=== PATIENT | male | born 1980 | race Hispanic/Latino ===

== ENCOUNTER 2017-09-23 23:46 | Inpatient (IN) | payer OTHER ==
[2017-09-23] MEDS ORDERED: Propofol 1,000 MG/100 ML VIAL IV ONE (23:52)
[2017-09-24] MEDS ORDERED: Fentanyl 100 MCG/2 ML VIAL ONE ×3 (00:05→02:57)
[2017-09-24] MEDS ORDERED: Vecuronium 10 MG VIAL ONE (00:07)
[2017-09-24] MEDS ORDERED: Water For Inject, Bacteriostat 30 ML ONE (00:08)
[2017-09-24 00:39] LABS: #Basophils 0.1 thou/uL (0.0-0.2); #Eosinphils 0.1 thou/uL (0.0-0.7); #Lymphocytes 1.7 thou/uL (1.20-3.40); #Monocytes 1.2 thou/uL (0.11-0.59); #Neutrophils 13.4 thou/uL (1.40-6.50); %Basophils 0.3 % (0.0-1.0); %Eosinophils 0.6 % (0.0-10.0); %Lymphocytes 10.2 % (21.0-51.0); %Monocytes 7.2 % (0.0-10.0); %Neutrophils 81.6 % (42.0-75.0); Hemoglobin 12.4 g/dL (14.0-18.0); Mean Corpuscular HGB CONC 33.6 g/dL (32.0-36.0); Mean Corpuscular Hemoglobin 31.5 pg (27.0-31.0); Mean Corpuscular Volume 93.8 fL (78.0-98.0); Mean Platelet Volume 7.2 fL (7.4-10.4); Platelet Count 200 thou/uL (130-400); RBC Distribution Width 11.3 % (11.5-14.5); Red Blood Cell (RBC) Count 3.93 mill/uL (4.70-6.10); White Blood Cell (WBC) Count 16.4 thou/uL (4.8-10.8)
[2017-09-24 00:46] LABS: ALT (SGPT) 9 U/L (8-55); AST (SGOT) 10 U/L (5-34); Alcohol Less than 10 mg/dL (Less than 10); Alkaline Phosphatase 85 U/L (40-150); Anion Gap 16 mmol/L (10-20); BUN (Urea Nitrogen) 12 mg/dL (8.9-20.6); Bilirubin, Total 1.2 mg/dL (0.2-1.2); Calc. Creatinine Clearance 0 mL/min (70-130); Calcium 7.3 mg/dL (7.8-10.44); Carbon Dioxide 15 mmol/L (22-29); Chloride 107 mmol/L (98-107); Estimated GFR-MDRD Greater than 90; Globulin 1.9 g/dL (2.4-3.5); Glucose 133 mg/dL (70-105); Lipase 19 U/L (8-78); Potassium 4.4 mmol/L (3.5-5.1); Protein, Total 4.9 g/dL (6.0-8.3); Sodium 134 mmol/L (136-145)
[2017-09-24 00:57] LABS: Actual Bicarbonate (HCO3a) 17.3 mEq/L (22-28); Base Excess (BEa) -6.4 mEq/L (-2.0 to +3.0); CO2 Tension 29.2 mmHg (35.0-45.0); Hematocrit-ABG 34.2 % (42.0-52.0); Hemoglobin (Hb) 11.8 g/dL (14.0-18.0); O2 Tension (PaO2) 565.9 mmHg (80.0-100.0); pH, Arterial 7.39 (7.35-7.45)
[2017-09-24 00:58] LABS: Analyzer IN Cardio ER; Calcium, Ionized 1.1 mmol/L (1.12-1.30); Puncture Site R FEMORAL
[2017-09-24 01:19] LABS: PTT 22.9 SEC (22.9-36.1)
[2017-09-24 01:20] LABS: INR-International Normal Ratio 1.3; Prothrombin Time 16.3 SEC (12.0-14.7)
[2017-09-24] MEDS ORDERED: CEFAZOLIN 1 GM VIAL ONE (01:25)
[2017-09-24] MEDS ORDERED: Adacel (T-DAP) 0.5 ML VIAL ONE ×2 (01:25→02:04)
[2017-09-24 01:48] LABS: Acetaminophen Less than 6.0 mcg/mL (10.0-30.0); Alcohol Less than 10 mg/dL (Less than 10); Salicylate Less than 8.0 mg/dL (15.0-30.0)
[2017-09-24] MEDS ORDERED: Ondansetron HCl/PF 4 MG/2 ML Vial IVP PRN (02:06)
[2017-09-24] MEDS ORDERED: Acetaminophen 650 MG/20.3 ML UDCUP PER TUBE PRN (02:06)
[2017-09-24 02:12] LABS: Bilirubin Negative (Negative); Blood, Urine Negative (Negative); Clarity CLEAR (Clear); Glucose, Urine (Dipstick) 100 mg/dL (Negative); Leukocyte Negative (Negative); Nitrite Negative (Negative); Protein, Urine (Dipstick) Trace mg/dL (Neg-Trace); Urobilinogen 0.2 mg/dL (0.2-1.0)
[2017-09-24 02:54] LABS: Specific Gravity, Urine 1.054 (1.002-1.036)
[2017-09-24 02:55] LABS: Amphetamine Not Detected (NotDetected); Barbiturates Screen Not Detected (NotDetected); Benzodiazepine Screen Not Detected (NotDetected); Cocaine Metabolite Screen Not Detected (NotDetected); Medtox Control Line Valid? VALID (VALID); Medtox Reader # READER 4; Methadone Not Detected (NotDetected); Methamphetamine Not Detected (NotDetected); Opiate Screen Not Detected (NotDetected); Oxycodone Screen Not Detected (NotDetected); Phencyclidine (PCP) Not Detected (NotDetected); THC/Cannabinoid Screen Not Detected (NotDetected); Tricyclic Screen Not Detected (NotDetected)
[2017-09-24] MEDS ORDERED: Fentanyl BOLUS 250 ML IVPB PRN (03:02)
[2017-09-24] MEDS ORDERED: fentaNYL Citrate/PF 2,000 MCG in Sodium Chloride 0.9% 60 ML IV SCH (03:02)
[2017-09-24] MEDS ORDERED: DISCONTINUE PREVIOUS NARCOTIC PAIN MEDICATIONS AND BENZODIAZEPINES FS SCH (03:02)
[2017-09-24] MEDS ORDERED: Lorazepam 2 MG/ML VIAL SLOW IVP PRN (03:02)
[2017-09-24] MEDS ORDERED: Propofol BOLUS 1,000 MG/100 ML VIAL IV PRN (03:02)
[2017-09-24] MEDS: Sodium Chloride 0.9% 1,000 ML IV SCH ×3 (03:24→22:19)
[2017-09-24] MEDS: Propofol 1,000 MG/100 ML VIAL IV PRN ×2 (03:38→09:19)
[2017-09-24 05:04] LABS: #Eosinphils 0.1 thou/uL (0.0-0.7); #Monocytes 1.5 thou/uL (0.11-0.59); #Neutrophils 12.1 thou/uL (1.40-6.50); %Basophils 0.2 % (0.0-1.0); %Eosinophils 0.5 % (0.0-10.0); %Monocytes 9.3 % (0.0-10.0); Hemoglobin 12.1 g/dL (14.0-18.0); Mean Corpuscular HGB CONC 33.5 g/dL (32.0-36.0); Mean Corpuscular Hemoglobin 31.9 pg (27.0-31.0); Mean Corpuscular Volume 95.1 fL (78.0-98.0); Mean Platelet Volume 7.3 fL (7.4-10.4); Platelet Count 204 thou/uL (130-400); RBC Distribution Width 11.5 % (11.5-14.5); Red Blood Cell (RBC) Count 3.79 mill/uL (4.70-6.10); White Blood Cell (WBC) Count 15.7 thou/uL (4.8-10.8)
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
[2017-09-24 05:24] LABS: Anion Gap 14 mmol/L (10-20); BUN (Urea Nitrogen) 11 mg/dL (8.9-20.6); Calc. Creatinine Clearance 121 mL/min (70-130); Calcium 8.3 mg/dL (7.8-10.44); Carbon Dioxide 18 mmol/L (22-29); Chloride 109 mmol/L (98-107); Estimated GFR-MDRD Greater than 90; Glucose 97 mg/dL (70-105); Potassium 4.4 mmol/L (3.5-5.1); Sodium 137 mmol/L (136-145)
[2017-09-24 05:26] LABS: Lactic Acid 5.7 mmol/L (0.5-2.2)
[2017-09-24] MEDS: Piperacillin/Tazobactam 3.375 GM in Sodium Chloride 0.9% 100 ML IVPB SCH ×2 (06:39→11:29)
--- NOTE | 2017-09-24 07:54 | RAD ---
SINGLE VIEW OF THE CHEST: COMPARISON: None. HISTORY: Chest pain. FINDINGS: A single view of the chest shows a normal-size cardiomediastinal silhouette. The endotracheal tube a nd NG Tube are unchanged in position. There is no evidence of consolidation, mass, or pleural effusi on. IMPRESSION: No evidence of acute cardiopulmonary disease. POS: [facility]
[2017-09-24] MEDS ORDERED: Vancomycin HCl 1.25 GM in Sodium Chloride 0.9% 250 ML 250 ML IVPB SCH (08:00)
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
[2017-09-24 09:23] VITALS: BMI 27.8
[2017-09-24 09:52] VITALS: BP 128/62
--- NOTE | 2017-09-24 12:18 | PDOC.PN ---
- Subjective Encounter Start Date: 09/24/17 Encounter Start Time: 10:35 Subjective: on vent, sedated - Objective Resuscitation Status: Resuscitation Status FULL:Full Resuscitation MAR Reviewed: Yes Vital Signs & Weight: Vital Signs (12 hours) Temp Pulse Resp BP Pulse Ox 09/24/17 11:00 99.8 F H 09/24/17 10:00 14 09/24/17 09:46 96 128/62 09/24/17 07:41 98.3 F 85 10 L 09/24/17 07:00 98.3 F 09/24/17 06:46 68 123/57 L 09/24/17 06:00 10 L 09/24/17 05:00 98.2 F 09/24/17 04:00 10 L 09/24/17 03:00 97.8 F 09/24/17 02:30 97.8 F 82 10 L 100 Weight Admit Weight 167 lb 8.821 oz Weight 167 lb 8.821 oz Most Recent Monitor Data Heart Rate from ECG 91 NIBP 109/56 NIBP BP-Mean 73 Respiration from ECG 18 SpO2 100 I&O: 09/23/17 09/24/17 09/25/17 06:59 06:59 06:59 Intake Total 263 450 Output Total 425 400 Balance -162 50 Result Diagrams: 09/24/17 04:39 09/24/17 04:39 Phys Exam - Physical Examination HEENT: PERRLA, sclera anicteric Neck: no nodes, no JVD Respiratory: no wheezing, no rales Cardiovascular: RRR, no significant murmur Gastrointestinal: soft, non-tender, positive bowel sounds Musculoskeletal: no edema, pulses present Neurological: non-focal, moves all 4 limbs Dx/Plan (1) Acute respiratory failure Code(s): J96.00 - ACUTE RESPIRATORY FAILURE, UNSP W HYPOXIA OR HYPERCAPNIA Status: Acute Qualifiers: Respiratory failure complication: hypoxia Qualified Code(s): J96.01 - Acute respiratory failure with hypoxia (2) Metabolic acidosis Code(s): E87.2 - ACIDOSIS Status: Acute (3) Acute encephalopathy Code(s): G93.40 - ENCEPHALOPATHY, UNSPECIFIED Status: Acute (4) Suicidal ideation Code(s): R45.851 - SUICIDAL IDEATIONS Status: Acute - Plan is on zosyn, vanc, await cultures -: wbc is 15k likely due to dehydration, gentle iv fluids -: weaning when pt wakes up more -: unclear etiology for initial intubation and encephalopathy, awaiting record -: -s to be faxed from his long-term unit. ?K2 overdose * . Review of Systems - Medications/Allergies Allergies/Adverse Reactions: Allergies Allergy/AdvReac Type Severity Reaction Status Date / Time No Allergy Information Allergy Verified 09/24/17 03:13 Available Medications: Current Medications Acetaminophen (Tylenol Elixir) 650 mg PER TUBE Q4H PRN PRN Reason: Headache/Fever or Pain Sodium Chloride (Normal Saline 0.9%) 1,000 mls @ 100 mls/hr IV .Q10H [facility] Last Admin: 09/24/17 09:24 Dose: 1,000 mls Fentanyl Citrate 2,000 mcg/ (Sodium Chloride) 100 mls @ 0 mls/hr IV INF [facility]; Per Protocol PRN Reason: Protocol Stop: 10/24/17 03:02 Last Admin: 09/24/17 04:16 Dose: 100 mls Fentanyl Citrate (Fentanyl Bolus) 250 mls @ 0 mls/hr IVPB PRN PRN; As Directed PRN Reason: Breakthrough pain/agitation Stop: 10/24/17 03:02 Piperacillin Sod/Tazobactam (Sod 3.375 gm/ Sodium Chloride) 100 mls @ 200 mls/ hr IVPB Q6HR [facility] Last Admin: 09/24/17 11:29 Dose: 100 mls Vancomycin HCl 1.25 gm/ Sodium (Chloride) 250 mls @ 166.667 mls/hr IVPB 0800, 2000 [facility] Last Admin: 09/24/17 08:06 Dose: 250 mls Lorazepam (Ativan) 2 mg SLOW IVP Q1H PRN PRN Reason: Breakthrough agitation Stop: 10/24/17 03:02 Morphine Sulfate (Morphine) 2 mg SLOW IVP Q1H PRN PRN Reason: BREAKTHROUGH PAIN/AGITATION Discontinue Previous Narcotic Pain Medications And Benzodiazepines 1 each FS .ONE [facility] Stop: 10/24/17 03:02 Ondansetron HCl (Zofran) 4 mg IVP Q6H PRN PRN Reason: Nausea/Vomiting Propofol (Diprivan) 1,000 mg IV INF PRN; Protocol PRN Reason: TO ACHIEVE GOAL RASS Stop: 10/24/17 03:02 Last Admin: 09/24/17 09:19 Dose: 1,000 mg Propofol (Diprivan Bolus) 20 mg IV Q5MIN PRN PRN Reason: BREAKTHROUGH AGITATION Stop: 10/24/17 03:02
[2017-09-24] MEDS ORDERED: Haloperidol Lactate 5 MG/ML VIAL SLOW IVP PRN (14:34)
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
[2017-09-25] MEDS: Sodium Chloride 0.9% 1,000 ML IV SCH ×2 (07:44→18:56)
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
[2017-09-25 13:07] VITALS: TEMP 98.6
--- NOTE | 2017-09-25 15:28 | PDOC.PN ---
- Subjective Encounter Start Date: 09/25/17 Encounter Start Time: 10:40 Subjective: awake, oriented well -: no sob, feels better -: denies he took anything to kill himself at senior living - Objective Resuscitation Status: Resuscitation Status FULL:Full Resuscitation MAR Reviewed: Yes Vital Signs & Weight: Vital Signs (12 hours) Temp Pulse Resp Pulse Ox 09/25/17 12:51 98.6 F 77 16 100 09/25/17 07:12 99.1 F 74 16 100 09/25/17 07:00 99.1 F 09/25/17 04:00 99.0 F Weight Admit Weight 167 lb 8.821 oz Weight 167 lb 8.821 oz Most Recent Monitor Data Heart Rate from ECG 89 NIBP 116/56 NIBP BP-Mean 73 Respiration from ECG 23 SpO2 100 I&O: 09/24/17 09/25/17 09/26/17 06:59 06:59 06:59 Intake Total 263 2911.8 780 Output Total 425 1645 140 Balance -162 1266.8 640 Result Diagrams: 09/24/17 04:39 09/24/17 04:39 Phys Exam - Physical Examination HEENT: PERRLA, moist MMs Neck: no JVD, supple Respiratory: no wheezing, no rales Cardiovascular: RRR, no significant murmur Gastrointestinal: soft, non-tender, positive bowel sounds Musculoskeletal: no edema (, ), pulses present left cubital laceration with clean sutures, rom and pulses normal Neurological: non-focal, moves all 4 limbs Psychiatric: A&O x 3 Dx/Plan (1) Acute respiratory failure Code(s): J96.00 - ACUTE RESPIRATORY FAILURE, UNSP W HYPOXIA OR HYPERCAPNIA Status: Resolved Qualifiers: Respiratory failure complication: hypoxia Qualified Code(s): J96.01 - Acute respiratory failure with hypoxia (2) Metabolic acidosis Code(s): E87.2 - ACIDOSIS Status: Acute Comment: stable (3) Acute encephalopathy Code(s): G93.40 - ENCEPHALOPATHY, UNSPECIFIED Status: Resolved (4) Suicidal ideation Code(s): R45.851 - SUICIDAL IDEATIONS Status: Suspected - Plan hemostable -: may dc to senior living unit, d/w -: to see psychiatrist at his facility in 3 days * . Review of Systems - Medications/Allergies Allergies/Adverse Reactions: Allergies Allergy/AdvReac Type Severity Reaction Status Date / Time No Allergy Information Allergy Verified 09/24/17 03:13 Available Medications: Current Medications Acetaminophen (Tylenol Elixir) 650 mg PER TUBE Q4H PRN PRN Reason: Headache/Fever or Pain Haloperidol Lactate (Haldol) 5 mg SLOW IVP Q4H PRN PRN Reason: Agitation Last Admin: 09/24/17 14:53 Dose: 5 mg Sodium Chloride (Normal Saline 0.9%) 1,000 mls @ 100 mls/hr IV .Q10H [facility] Last Admin: 09/25/17 07:44 Dose: 1,000 mls Ondansetron HCl (Zofran) 4 mg IVP Q6H PRN PRN Reason: Nausea/Vomiting
--- NOTE | 2017-09-27 00:38 | EKG ---
Test Reason : Blood Pressure : / mmHG Vent. Rate : 060 BPM Atrial Rate : 060 BPM P-R Int : 140 ms QRS Dur : 080 ms QT Int : 408 ms P-R-T Axes : 068 048 029 degrees QTc Int : 408 ms Normal sinus rhythm Normal ECG Confirmed by CECILIA GLEASON ([id number]), brands editor GUNNER RIVERA ([id number] on 09/27/2017 12:37:41 AM Referred By: Confirmed By:CECILIA GLEASON
== END 2017-09-25 19:05 | DRG 208 ==
LOC: ERS 23:46 → CCU 09-24 02:00 → T4-A 09-25 11:44
PROVIDERS: ADMIT Hospitalist; ATTEND Hospitalist
PROC: 5A1935Z Respiratory Ventilation, Less than 24 Consecutive Hours (ICD-10-PCS; principal; 2017-09-24)
DX: J96.01 Acute respiratory failure with hypoxia (principal); G93.41 Metabolic encephalopathy; E87.2 Acidosis; R45.851 Suicidal ideations; S51.012A Laceration without foreign body of left elbow, initial encounter; X58.XXXA Exposure to other specified factors, initial encounter; Y93.89 Activity, other specified; Y92.149 Unspecified place in prison as the place of occurrence of the external cause
CPT/HCPCS: 36415; 70450; 71045; 71260; 72125; 74177; 80053; 80306; 80307; 81003; 82805; 83605; 83690; 85025; 85610; 85730; 86850; 86900; 86901; 90715; 93005; 94002; 94003; J0690; J1630; J2543; J2704; J3010; J3370; J7050